=== PATIENT | female | born 1955 ===

== ENCOUNTER 2022-10-02 05:50 | Day surgery (SDC) | payer OTHER ==
[~2022-10-02] VITALS: Ht 154.9 cm; Wt 7.3 kg
== END 2022-10-02 16:45 | disposition home or self-care (01) ==
LOC: CIR.AMB 05:50
PROVIDERS: ATTEND Obstetrics & Gynecology
DX: C54.1 Malignant neoplasm of endometrium (principal); N95.0 Postmenopausal bleeding; N84.0 Polyp of corpus uteri; Z20.822 Contact with and (suspected) exposure to COVID-19; I10 Essential (primary) hypertension; E78.00 Pure hypercholesterolemia, unspecified